=== PATIENT | female | born 1985 | race Caucasian/White ===

== ENCOUNTER 2023-08-25 18:20 | Inpatient (IN) | payer BC ==
--- NOTE | 2023-08-25 19:54 | P.HPOB ---
History of Present Illness H&P Date: 08/25/23 Chief Complaint: induction of labor Ms. Morris is a 38 year old at 38 weeks and 6 days with EDC of 09/02/2023 (by 9 week US) with an IVF , a history of recurrent loss, and advanced maternal age who presents to L&D for induction of labor. The patient has had a history of a LEEP, however, her cervical length has been within normal limits on ultrasound measurements throughout the . The patient has been taking Lovenox and low-dose aspirin per JUDIE for the history of recurrent loss. This was transitioned to 10,000 units of Heparin BID at 36 weeks. Her last dose of Heparin was at 930 this morning (08/25). The fetus was measuring in the 51%ile for growth at 32 weeks. Obstetric history: 3 SABs Work-Up: blood type O positive, antibody screen negative, rubella immune, VDRL non-reactive, HBsAg negative, HIV negative, gonorrhea negative, chlamydia negative, 1 hour GTT negative, GBS negative. s/p TDap and RSV vaccines. Exam Focused physical exam is performed. This is a healthy-appearing in no apparent distress. Breathing is non-labored. Abdomen is gravid and non-tender. Cervical exam is fingertip, 0% effacement, -3 station, and posterior. Cooks catheter is placed with 60cc in each balloon. Extremities non-tender and non-edematous. heart tones are reactive and ressuring, tocometer is not graphing any contractions. Assessment and Plan Assessment: 38 year old at 38 weeks and 6 days presenting for IOL for IVF , history of recurrent loss, and advanced maternal age Plan: Admit, clear liquid diet, up ad sintia, IV Nubian 5mg q4 hours prn, low-dose pitocin x12 hours while cooks catheter in place, continuous EFM and tocomter, close monitoring of patient. Time with Patient: Less than 30
[2023-08-25] MEDS ORDERED: TERBUTALINE 1 MG/ML VIAL SQ PRN (20:52)
[2023-08-25] MEDS ORDERED: miSOPROStoL 200 MCG TAB PO PRN (20:52)
[2023-08-25] MEDS ORDERED: METHYLERGONOVINE 0.2 MG/ML 1 ML AMP IM PRN (20:52)
[2023-08-25] MEDS ORDERED: OXYTOCIN 10 UNIT/ML 1 ML VIAL IM PRN (20:52)
[2023-08-25] MEDS ORDERED: CARBOPROST TROMETHAMINE 250 MCG/ML 1 ML AMP IM PRN (20:52)
[2023-08-25] MEDS ORDERED: TRANEXAMIC 1,000 MG/100ML-NACL 1,000 MG in EMPTY BAG 1 BAG IV PRN (20:52)
[2023-08-25] MEDS ORDERED: LIDOCAINE 0.5% (PF) 5 MG/ML (50 ML SDV) SQ PRN (20:52)
[2023-08-25] MEDS ORDERED: OXYTOCIN 30 UNITS/500 ML NS 30 UNIT in SALINE 1 500ML.BAG IV SCH (21:00)
[2023-08-25] MEDS: OXYTOCIN 30 UNITS/500 ML NS 30 UNIT in SALINE 1 500ML.BAG IV SCH (21:07)
[2023-08-25] MEDS: LACTATED RINGERS 1,000 ML IV SCH (21:07)
[2023-08-25 21:31] LABS: Basophils % (A) 0 %; Eosinophils # (A) 0.2 k/uL (0-0.7); Eosinophils % (A) 2 %; HCT 38.2 % (34.0-46.0); HGB 12.9 gm/dL (11.4-16.0); Lymphocytes # (A) 2.2 k/uL (1.0-4.8); Lymphocytes % (A) 20 %; MCH 31.2 pg (25.0-35.0); MCHC 33.7 g/dL (31.0-37.0); MCV 92.3 fL (80.0-100.0); Mean Platelet Volume 10.6; Monocytes # (A) 0.5 k/uL (0-1.0); Monocytes % (A) 4 %; Neutrophils # (A) 7.8 k/uL (1.3-7.7); Neutrophils % (A) 70 %; Platelet Count 221 k/uL (150-450); RBC 4.13 m/uL (3.80-5.40); WBC 11.1 k/uL (3.8-10.6)
[2023-08-25] MEDS: NALBUPHINE 10 MG/ML (10 ML MDV) IV PRN (22:56)
[2023-08-26] MEDS: NALBUPHINE 10 MG/ML (10 ML MDV) IV PRN ×2 (03:43→11:35)
[2023-08-26] MEDS: LACTATED RINGERS 1,000 ML IV SCH ×2 (07:30→13:00)
[2023-08-26] MEDS ORDERED: SODIUM CHLORIDE 0.9% 250 ML BAG ONE (14:32)
[2023-08-26] MEDS ORDERED: fentaNYL (PF) 50 MCG/ML 5 ML AMP ONE (14:32)
[2023-08-26] MEDS ORDERED: ROPIVACAINE 5 MG/ML 30 ML VIAL ONE (14:32)
[2023-08-26] MEDS ORDERED: diphenhydrAMINE 50 MG CAP PO PRN (22:35)
[2023-08-26] MEDS ORDERED: diphenhydrAMINE 25 MG CAP PO PRN (22:35)
[2023-08-26] MEDS ORDERED: HYDROCORTISONE 2.5% RECTAL CREAM 30 GM TUBE RECTAL PRN (22:35)
[2023-08-26] MEDS ORDERED: LANOLIN CREAM 5 GM TUBE TOPICAL PRN (22:35)
[2023-08-26] MEDS ORDERED: ZOLPIDEM 5 MG TAB PO PRN (22:35)
[2023-08-26] MEDS ORDERED: BENZOCAINE/MENTHOL SPRAY 1 GM/SPRAY AEROSOL TOPICAL PRN (22:35)
[2023-08-26] MEDS ORDERED: SIMETHICONE 80 MG CHEWABLE PO PRN (22:35)
[2023-08-26] MEDS ORDERED: diphenhydrAMINE 50 MG/ML 1 ML VIAL IVP PRN ×2 (22:35)
--- NOTE | 2023-08-26 22:36 | P.PROBDLV ---
Vaginal Delivery Note - . Vaginal Delivery Note: DATE OF SERVICE: 08/26/2023 PROCEDURE: Normal Vaginal Delivery ATTENDING: Dr. Itzel Smith MD ESTIMATED BLOOD LOSS: 700 mL FINDINGS: VMI, Apgars 8/9. Weight 7 pounds and 7 ounces (3375 grams) PROCEDURE: Ms. Morris is a 38 year old at 39 weeks and 0 days presenting to labor and delivery for induction of labor. The has been complicated by advanced maternal age. This is also an IVF . For further details, please review the admitting H&P. A cooks catheter was used for cervical ripening with oxytocin. After the cooks catheter was removed, AROM was undertaken at 1208 for clear amniotic fluid. The patient received epidural anesthesia per her request. The patient was completely dilated at 2000. She pushed effectively. Category II heart tones were noted with recurrent variable decelerations during pushing. However, the patient was progressing towards delivery so pushing efforts were continued. A viable male infant was delivered at 2155. The was placed on the maternal abdomen and bulb suctioned. The infant was noted to be spontaneously crying. Cord was clamped and cut after a 30-second delay. The was handed off to the pediatric team. Placenta was delivered whole with gentle cord traction. Oxytocin was started to facilitate uterine tone. The uterus was found to be atonic and there was brisk bleeding from the cervix. At this time, IM Methergine was also administered. Uterine fundus was found to be firm and below the umbilicus upon fundal massage. Bleeding became minimal at this time. Thorough examination of the cervix, vagina, periurethral area, and perineum revealed superficial bilateral periurethral lacerations and a first degree perineal laceration. The perineal laceration was repaired with 3-0 Vicryl in the usual fashion. The patient is stable and allowed to begin the bonding process.
[2023-08-26] MEDS: OXYTOCIN 30 UNITS/500 ML NS 30 UNIT in SALINE 1 500ML.BAG IV SCH (22:57)
[2023-08-27] MEDS: LACTATED RINGERS 1,000 ML IV SCH (00:15)
[2023-08-27] MEDS: IBUPROFEN 600 MG TAB PO PRN ×3 (00:22→16:18)
[2023-08-27] MEDS: ACETAMINOPHEN TAB 325 MG TAB PO PRN ×2 (03:54→20:32)
[2023-08-27 06:15] LABS: Basophils % (A) 0 %; Eosinophils % (A) 0 %; HCT 27.4 % (34.0-46.0); Lymphocytes # (A) 1.9 k/uL (1.0-4.8); Lymphocytes % (A) 9 %; MCH 31.5 pg (25.0-35.0); MCHC 34.2 g/dL (31.0-37.0); MCV 92.2 fL (80.0-100.0); Mean Platelet Volume 9.7; Monocytes # (A) 0.9 k/uL (0-1.0); Monocytes % (A) 4 %; Neutrophils # (A) 17.9 k/uL (1.3-7.7); Neutrophils % (A) 84 %; Platelet Count 187 k/uL (150-450); RBC 2.97 m/uL (3.80-5.40); RDW 13.2 % (11.5-15.5); WBC 21.3 k/uL (3.8-10.6)
[2023-08-27 06:38] LABS: HGB 9.4 gm/dL (11.4-16.0)
[2023-08-27] MEDS: SENNOSIDES-DOCUSATE SODIUM 1 EACH TAB PO SCH ×2 (08:33→20:24)
--- NOTE | 2023-08-27 09:03 | P.PNOBGVD ---
Subjective - Subjective Principal diagnosis: s/p vaginal delivery Interval history: The patient is doing well this morning and had no acute events overnight. She has no complaints this morning. She reports minimal lochia, passing flatus, voiding without difficulty, ambulating, and eating/drinking without nausea or vomiting. She is and working on latch. She denies chest pain, shortness of breathing, fevers, or chills overnight. She denies pain or swelling in the legs. Patient reports: Reports appetite normal, Reports voiding normally, Reports pain well controlled, Reports ambulating normally : doing well Objective - Latest Vital Signs Latest vital signs: Vital Signs Temp Pulse Resp BP Pulse Ox 08/27/23 04:00 98.5 F 74 18 134/71 100 08/27/23 00:26 98.1 F 81 16 117/57 08/26/23 23:56 100 18 120/60 08/26/23 23:26 92 16 127/64 08/26/23 23:11 82 18 117/60 08/26/23 22:56 87 18 117/60 08/26/23 22:41 91 16 132/67 08/26/23 22:26 98.6 F 92 18 117/68 Intake and Output 08/26/23 08/27/23 08/27/23 22:59 06:59 14:59 Intake Total 258.933 128.033 Output Total 1100 150 Balance -841.067 -21.967 Intake: Intake, IV Titration 258.933 128.033 Amount Oxytocin 30 Units/500 ml 258.933 128.033 Ns 30 unit In Saline 1 500ml.bag @ Per Protocol IV .Q0M [facility] Rx#:[id number] Output: Urine 400 150 Estimated Blood Loss 700 Other: # Voids 1 - Exam Extremities: Present: normal Abdomen: Present: normal appearance, soft Uterus: Present: normal, firm - Labs Labs: Abnormal Lab Results - Last 24 Hours (Table) 08/27/23 Range/Units 05:21 WBC 21.3 H (3.8-10.6) k/uL RBC 2.97 L (3.80-5.40) m/uL Hgb 9.4 L D (11.4-16.0) gm/dL Hct 27.4 L (34.0-46.0) % Neutrophils # 17.9 H (1.3-7.7) k/uL Assessment and Plan Assessment: 38 year old PPD#1 s/p normal vaginal delivery Plan: 1. . Patient meeting milestones appropriately. 2. Acute Blood Loss Anemia. Ferrous sulfate ordered. VSS, patient asymptomatic. 3. Viable male at bedside. Plan for circumcision this afternoon. dispo: anticipate discharge home this evening or tomorrow morning.
[2023-08-27] MEDS ORDERED: FERROUS SULFATE 325 MG TAB PO SCH (12:30)
--- NOTE | 2023-08-27 17:33 | P.DS ---
Providers Date of admission: 08/25/23 18:20 Expected date of discharge: 08/27/23 Attending physician: Itzel Smith MD Primary care physician: Mariaa Chacon [facility] Course: Ms. Morris is a 38 year old now PPD#1 s/p vaginal delivery after elective induction of labor. Once reaching complete dilation she pushed for approximately 2 hours and did have a 1st degree perineal laceration. She also had a hemorrhage that resolved quickly with oxytocin and Methergine. The patient is feeling well and desires discharge home tonight. She has no complaints this morning. She reports minimal lochia, passing flatus, voiding wit hout difficulty, ambulating, and eating/drinking without nausea or vomiting. Infant doing well at bedside, s/p circumcision. She denies chest pain, shortness of breathing, fevers, or chills overnight. She denies pain or swelling in the legs. restrictions are reviewed with the patient including pelvic rest for 6 weeks. The patient is encouraged to call the office if she experiences any heavy bleeding, foul-smelling discharge, breast complaints, or any if she has any other concerns. She will follow up in the office with in 6 weeks for postoperative exam. She will be discharge home with Motrin, Tylenol, and ferrous sulfate. All questions are answered. Assessment: 38 year old now PPD#1 s/p vaginal delivery complicated by hemorrhage Patient Condition at Discharge: Good Plan - Discharge Summary Discharge Rx Participant: No New Discharge Prescriptions: New Ferrous Sulfate [Iron (65 MG Elemental)] 325 mg PO DAILY #30 tab Acetaminophen Tab [Tylenol] 650 mg PO Q6H PRN #30 tab PRN Reason: Mild Pain (Scale 1 To 3) Ibuprofen [Motrin] 600 mg PO Q6HR PRN #30 tab PRN Reason: Mild Pain (Scale 1 To 3) No Action Vit No.179/Iron/Folic [ Tablet] 1 each PO DAILY Omeprazole 20 mg PO DAILY Fexofenadine HCl [Vilma Allergy] 1 tab PO DAILY Aspirin [Children's Aspirin] 81 mg PO DAILY Discharge Medication List Aspirin [Children's Aspirin] 81 mg PO DAILY 08/25/23 [History] Fexofenadine HCl [Vilma Allergy] 1 tab PO DAILY 08/25/23 [History] Omeprazole 20 mg PO DAILY 08/25/23 [History] Vit No.179/Iron/Folic [ Tablet] 1 each PO DAILY 08/25/23 [History] Acetaminophen Tab [Tylenol] 650 mg PO Q6H PRN #30 tab 08/27/23 [Rx] Ferrous Sulfate [Iron (65 MG Elemental)] 325 mg PO DAILY #30 tab 08/27/23 [Rx] Ibuprofen [Motrin] 600 mg PO Q6HR PRN #30 tab 08/27/23 [Rx] Follow up Appointment(s)/Referral(s): Itzel Smith MD [STAFF PHYSICIAN] - 6 Weeks Activity/Diet/Wound Care/Special Instructions: Instructions 1. Do not begin any exercise program for 3 weeks. 2. Do not resume sexual relations for 6 weeks or longer if uncomfortable. 3. You may take tub baths or showers at any time. 4. You may use tampons if desired after 6 weeks. 5. Keep any areas repaired with stitches clean and dry. 6. If you are not nursing, wear a good fitting, supportive bra during the day and limit fluid intake for at least 1 week to prevent breast engorgement. 7. Call the office, , within the next week to make appointment for your 6 week checkup if it has not already been made. 8. Report any of the following occurrences to the doctor promptly: a. Heavy, excessive bleeding b. Chills, fever c. Burning or frequency of urination d. Pain or redness and breasts if nursing e. Increasing pain or swelling of vulva (stitches). In addition to the above instructions, the following additional should be followed: 1. No heavy lifting or straining (exercising) until after 6 week checkup. 2. Keep abdominal incision clean and dry: You may wear a dressing if more comfortable. 3. Make office appointment for 2 weeks after delivery date. Discharge Disposition: HOME SELF-CARE
[2023-08-28] MEDS: IBUPROFEN 600 MG TAB PO PRN (04:25)
[2023-08-28 09:17] VITALS: BP 121/76; PULSE 56; RESP 15; TEMP 97.9
--- NOTE | 2023-08-28 09:54 | P.PN ---
Progress Note - Text Progress Note Date: 08/28/23 Ms. Morris is a 38 year old now PPD#2 s/p vaginal delivery complicated by hemorrhage. She was initially planning on going home last night after 24 hours but stayed overnight to work on her baby's latch and milk transfer. The baby is feeing better this morning and she desires discharge home. We will check a CBC to ensure that her white count is trending down as she had a moderate rise in white count after delivery. She shows no signs of infection, she denies fevers or chills.
[2023-08-28 10:10] LABS: Basophils % (A) 0 %; Eosinophils # (A) 0.3 k/uL (0-0.7); Eosinophils % (A) 3 %; HCT 24.9 % (34.0-46.0); HGB 8.4 gm/dL (11.4-16.0); Lymphocytes # (A) 1.9 k/uL (1.0-4.8); Lymphocytes % (A) 14 %; MCH 31.3 pg (25.0-35.0); MCHC 33.6 g/dL (31.0-37.0); MCV 93.2 fL (80.0-100.0); Monocytes # (A) 0.3 k/uL (0-1.0); Monocytes % (A) 2 %; Neutrophils # (A) 10.5 k/uL (1.3-7.7); Neutrophils % (A) 79 %; Platelet Count 187 k/uL (150-450); RBC 2.68 m/uL (3.80-5.40); RDW 13.4 % (11.5-15.5); WBC 13.3 k/uL (3.8-10.6)
[2023-08-28] MEDS: SENNOSIDES-DOCUSATE SODIUM 1 EACH TAB PO SCH (10:34)
== END 2023-08-28 10:25 | disposition home or self-care (01) | DRG 806 ==
LOC: 4FBP 18:20
PROVIDERS: ADMIT Obstetrics & Gynecology; ATTEND Obstetrics & Gynecology
PROC: 10907ZC Drainage of Amniotic Fluid, Therapeutic from Products of Conception, Via Natural or Artificial Opening (ICD-10-PCS; principal; 2023-08-26)
PROC: 10E0XZZ Delivery of Products of Conception, External Approach (ICD-10-PCS; principal; 2023-08-26)
PROC: 3E033VJ Introduction of Other Hormone into Peripheral Vein, Percutaneous Approach (ICD-10-PCS; principal; 2023-08-26)
PROC: 0UQMXZZ Repair Vulva, External Approach (ICD-10-PCS; principal; 2023-08-26)
PROC: 0U7C7ZZ Dilation of Cervix, Via Natural or Artificial Opening (ICD-10-PCS; principal; 2023-08-26)
PROC: 0HQ9XZZ Repair Perineum Skin, External Approach (ICD-10-PCS; principal; 2023-08-26)
DX: O26.23 Pregnancy care for patient with recurrent pregnancy loss, third trimester (principal); D62 Acute posthemorrhagic anemia; O72.1 Other immediate postpartum hemorrhage; O90.81 Anemia of the puerperium; O76 Abnormality in fetal heart rate and rhythm complicating labor and delivery; O71.82 Other specified trauma to perineum and vulva; O70.0 First degree perineal laceration during delivery; Z79.01 Long term (current) use of anticoagulants; Z3A.38 38 weeks gestation of pregnancy; Z37.0 Single live birth
CPT/HCPCS: 85025; 86850; 86900; 86901

== ENCOUNTER → 2024-08-17 | Outpatient (CLI) | payer BC ==
--- NOTE | 2024-08-17 17:21 | CT ---
EXAMINATION TYPE: CT sinus wo con DATE OF EXAM: 08/17/2024 1:08 PM COMPARISON: None. CLINICAL INDICATION: Female, 39 years old with history of J32.9 CHRONIC SINUSITIS, CHRONIC SINUSITIS. TECHNIQUE: The paranasal sinuses are examined in the axial plane at 2 mm thick sections. Reconstruct ed images in the coronal plane were obtained. Contrast used: mL of , (none if empty) Oral contrast used: (none if empty) CT DLP: 442.30 mGycm, Automated exposure control for dose reduction was used. FINDINGS: Mucosal thickening is present to the right maxillary sinus. The ethmoid air cells are clear. The sp henoid sinuses are clear. The frontal sinuses are clear. The septum is evaluated. There is septal deviation to the right. A right septal spur is noted. Right ostiomeatal unit is obstructed. Left ostiomeatal unit is patent. IMPRESSION: 1. Mucosal thickening right maxillary sinus with obstruction of the right ostiomeatal unit. 2. Right septal deviation [facility], Workstation: [facility], 08/17/2024 5:19 PM
== END | disposition home or self-care (01) ==
LOC: RADCTMAIN 11:57
PROVIDERS: ATTEND Family Medicine
DX: J32.9 Chronic sinusitis, unspecified (principal); J34.89 Other specified disorders of nose and nasal sinuses; J34.2 Deviated nasal septum
CPT/HCPCS: 70486

== ENCOUNTER → 2024-10-12 | Outpatient (CLI) | payer BC ==
--- NOTE | 2024-10-12 09:46 | MM ---
Reason for Exam: Hx of breast augmentation, asymptomatic. Baseline mammogram. Patient History: Menarche at age 15. First Full-Term at age 38. Late child-bearing (after 30). Premenopausal. Bilateral Implants. Last menstrual period: 09/13/2024 Risk Values: Linnette 5 year model risk: 0.7%. NCI Lifetime model risk: 12.5%. Prior Study Comparison: Patient's first Mammogram. Tissue Density: The breasts are extremely dense, which lowers the sensitivity of mammography. Findings: Analyzed By CAD. Bilateral breast implants appear intact. Right breast: There is no suspicious group of microcalcifications or new suspicious mass. Left breast: There is no suspicious group of microcalcifications or new suspicious mass. Overall Assessment: Negative, BI-RAD 1 Management: Screening Mammogram of both breasts in [address] [facility] will attempt to contact patient to return for supplemental views and ultrasound if indicated. Patient should continue monthly self-breast exams. A clinical breast exam by your physician is recommended on an annual basis. This exam should not preclude additional follow-up of suspicious palpable abnormalities. Note on Linnette scores and lifetime risk: 1. A Linnette score greater than 3% is considered moderate risk. If this is the case, consider specialist referral to assess eligibility for a risk reducing agent. 2. If overall lifetime risk for the development of breast cancer is 20% or higher, the patient may qualify for future screening with alternating mammogram and breast MRI. [facility], , 10/12/2024 9:43 AM. Electronically signed and approved by: Santhosh Monreal DO
== END | disposition home or self-care (01) ==
LOC: RADMAMWWP 08:01
PROVIDERS: ATTEND Internal Medicine
DX: Z12.31 Encounter for screening mammogram for malignant neoplasm of breast (principal); R92.343 Mammographic extreme density, bilateral breasts; Z98.82 Breast implant status
CPT/HCPCS: 77063; 77067